=== PATIENT | male | born 1995 | race American Indian/Alaskan Native ===

== ENCOUNTER 2020-04-13 11:54 | Emergency (ER) | payer BC | END 2020-04-13 15:01 | disposition home or self-care (01) | LOC: JVIRT 11:54 | DX: Z20.828 Contact with and (suspected) exposure to other viral communicable diseases (principal) | CPT/HCPCS: C9803; G2012-GT; U0003 ==

== ENCOUNTER 2020-05-22 19:50 | Emergency (ER) | payer OTHER, BC ==
[2020-05-22] MEDS ORDERED: DIPHTH,PERTUSS(ACELL),TET 0.5 ML DISP.SYRIN IM ONE (19:54)
[2020-05-22 21:45] VITALS: BP 118/68; PULSE 72; TEMP 98.3; BMI 25.0
== END 2020-05-22 20:34 | disposition home or self-care (01) ==
LOC: JER 19:50 → JERFT 19:50
PROC: 3E0234Z Introduction of Serum, Toxoid and Vaccine into Muscle, Percutaneous Approach (ICD-10-PCS; principal; 2020-05-22)
DX: S61.211A Laceration without foreign body of left index finger without damage to nail, initial encounter (principal); W46.1XXA Contact with contaminated hypodermic needle, initial encounter
CPT/HCPCS: 36415; 86317; 86704; 86706; 86803; 87340; 87389; 90715; 99284-25

== ENCOUNTER 2021-06-01 08:44 | Emergency (ER) | payer BC | END 2021-06-01 09:00 | disposition home or self-care (01) | LOC: JVIRT 08:44 | DX: Z11.52 Encounter for screening for COVID-19 (principal) | CPT/HCPCS: C9803; Q3014-GT; U0003; U0005 ==